=== PATIENT | female | born 1950 | race Caucasian/White ===

== ENCOUNTER 2016-12-19 05:32 | Day surgery (SDC) | payer MEDICARE, OTHER ==
--- NOTE | ~2016-12-19 | OP ---
Record Of Operation [facility] [address] [place]. [address] NAME: ALEXANDER BOWMAN : 46 STATUS : REG [facility] PAT#: [id number] AGE: 66 ADM/REG DATE : 12/19/16 MR#: [id number] REPORT SERV DATE: 12/19/16 DICTATED BY: KATRINA DEL RIO JR. DATE: 12/19/16 REPORT STATUS : Draft TRANSCRIBED BY: LANA DATE: 12/19/16 DATE OF PROCEDURE: 12/19/2016 PREOPERATIVE DIAGNOSES: Right middle lobe and right upper lobe lung masses with mediastinal lymphadenopathy, rule out metastatic lung cancer, osteoporosis, chronic obstructive pulmonary disease, atrophic kidney. POSTOPERATIVE DIAGNOSIS: Metastatic non-small cell lung cancer. NAME OF OPERATION: Diagnostic and therapeutic bronchoscopy, endobronchial ultrasound with multiple fine-needle aspirations, katharine stations 4R. SURGEON: Katrina Del Rio M.D. RESIDENT SURGEON: Ross Tomas MD. ANESTHESIA: General endotracheal. FINDINGS: The patient noted to have pathologically enlarged lymph node in the right paratracheal location. This was the lymph node seen on PET-CT scan. Multiple fine-needle aspirations demonstrated metastatic non-small cell lung cancer. Additional material sent for cell block. Final pathology is pending. There was no endobronchial lesions or any abnormality seen on bronchoscopy. DETAILS OF OPERATION: After adequate general anesthesia, the patient was intubated with an LMA. Diagnostic and therapeutic bronchoscopy was performed with above findings noted. Mucous secretions were evacuated. An endobronchial ultrasound was then performed noting a pathologically enlarged lymph node in the right paratracheal area. There was a calcified lymph node in the subcarinal region. The 4R lymph node was biopsied and noted to have metastatic non-small cell lung cancer, present in the touch preps. Additional material sent for cell block. Final pathology is pending. Adequate hemostasis was obtained. The procedure was terminated at this point. The patient tolerated the procedure well and taken back to recovery room in stable condition. JOSE/LANA Katrina Del Rio Jr., M.D. / [id number] CC: Layne Andrea Jr. Byrad
[~2016-12-19 05:32] MED LIST: 8 HOUR650 MG PO; CELEXA40 MG PO; COMP10B PO; FISH-EPA1000 MG PO; KAPIDEX60 MG PO; MOBIC15 MG PO; PCET PO; PRAVACHOL40 MG PO; VENTOLIN HFA INH; ZANTAC300 MG PO
[2016-12-19 06:20] LABS: HEMATOCRIT 44.6 % (36.0-48.0); HEMOGLOBIN 15.2 g/dL (12.0-16.0)
[2016-12-19 06:32] LABS: CHLORIDE, SERUM 104 MMOL/L (96-112); CO2 (CARBON DIOXIDE) 29 MMOL/L (24-34); CREATININE 1.06 MG/DL (0.55-1.02); GFR AFRICAN AMERICAN 62 ML/MIN (>=60); GFR NON AFRICAN AMERICAN 54 ML/MIN (>=60); GLUCOSE, SERUM 125 MG/DL (60-99); POTASSIUM, SERUM 4.1 MMOL/L (3.5-5.3); SODIUM, SERUM 142 MMOL/L (135-148)
[2016-12-19 06:35] LABS: BUN (BLOOD UREA NITROGEN) 10 MG/DL (6-23); CALCIUM, SERUM 9.3 MG/DL (8.5-10.4)
== END 2016-12-19 23:59 | disposition home or self-care (01) ==
LOC: DMU 05:32
PROVIDERS: Anesthesiology; Thoracic Surgery (Cardiothoracic Vascular Surgery)
PROC: 07974ZX Drainage of Thorax Lymphatic, Percutaneous Endoscopic Approach, Diagnostic (ICD-10-PCS; principal; 2016-12-19 08:00)
DX: C34.11 Malignant neoplasm of upper lobe, right bronchus or lung (principal); C34.2 Malignant neoplasm of middle lobe, bronchus or lung; J44.9 Chronic obstructive pulmonary disease, unspecified; F32.9 Major depressive disorder, single episode, unspecified; F41.9 Anxiety disorder, unspecified; Z87.891 Personal history of nicotine dependence; K21.9 Gastro-esophageal reflux disease without esophagitis; E78.00 Pure hypercholesterolemia, unspecified; K64.9 Unspecified hemorrhoids; K57.92 Diverticulitis of intestine, part unspecified, without perforation or abscess without bleeding; Z90.5 Acquired absence of kidney; Z98.51 Tubal ligation status; Z90.721 Acquired absence of ovaries, unilateral; Z98.890 Other specified postprocedural states
CPT/HCPCS: 80048; 85014; 85018; 88172; 88173; 88305; 88341; 88342; 93005; C1725; J2370; J3010